=== PATIENT | male | born 1945 | race Caucasian/White ===

== ENCOUNTER 2020-05-16 06:00 | Outpatient (RCR) | payer MEDICARE, SELFPAY | END 2020-05-31 23:59 | disposition home or self-care (01) | LOC: WPT 06:00 | PROVIDERS: PCP Physician Assistant Medical; Referring Provider Physician Assistant Medical; Visit Provider Physician Assistant Medical | DX: G20 Parkinson's disease (principal) | CPT/HCPCS: 97110; 97116; 97163 ==

== ENCOUNTER 2020-06-01 06:00 | Outpatient (RCR) | payer MEDICARE, SELFPAY | END 2020-07-01 23:59 | disposition home or self-care (01) | LOC: WPT 06:00 | PROVIDERS: PCP Physician Assistant Medical; Referring Provider Physician Assistant Medical; Visit Provider Physician Assistant Medical | DX: G20 Parkinson's disease (principal); Z98.1 Arthrodesis status | CPT/HCPCS: 97110; 97116 ==

== ENCOUNTER 2020-09-12 13:06 | Emergency (ER) | payer MEDICARE, SELFPAY ==
--- NOTE | 2020-09-12 13:10 | ECG_ITS ---
[facility] Test Date: 2020-09-12 Pat Name: Luis Brewster Department: Room: Gender: Male Ostomy Care Nurse: : 1945 Requested By: Bon Vela Order Number: [id number] Yas MD: Waqas Dela Cruz M.D. Measurements Intervals [place] Rate: 73 P: 27 LA: 165 QRS: 44 QRSD: 95 T: 21 QT: 369 QTc: 408 Interpretive Statements LIKELY SINUS RHYTHM CAN NOT INTERPRET FURTHER BECAUSE OF BASELINE ABNORMALITIES No previous ECG available for comparison Electronically Signed On 09-13-2020 20:05:06 SOFTWARE PACKAGER by Waqas Dela Cruz M.D. [email or web address] Corpcleveland clinic [email or web address] hospital.Lernstift/store/NU/[id number] f
--- NOTE | 2020-09-12 13:10 | XRR_ITS ---
PROCEDURE INFORMATION: Exam: XR Chest, 1 View Exam date and time: 09/12/2020 1:33 PM Age: 75 years old Clinical indication: Shortness of breath; Additional info: SOB TECHNIQUE: Imaging protocol: XR of the chest Views: 1 view. COMPARISON: No relevant prior studies available. FINDINGS: Tubes, catheters and devices: Electronic stimulator is in place in the left axillary soft tissues the lead extends into the neck Lungs: Unremarkable. No consolidation. Pleural space: Unremarkable. No pleural effusion. No pneumothorax. Heart/Mediastinum: Unremarkable. No cardiomegaly. Bones/joints: Unremarkable. XR/XR chest 1V portable [id number] IMPRESSION: 1. No acute findings. 2. Electronic stimulator left axillary soft tissues
[2020-09-12 13:20] VITALS: BP 150/76; PULSE 80; RESP 16; TEMP 37; O2SAT 93; BMI 27.1
--- NOTE | 2020-09-12 13:28 | ED_ITS ---
HPI - Weakness General: Chief complaint: COVID symptoms Stated complaint: COVID +/ GENERAL WEAKNESS Time Seen by Provider: 09/12/20 13:09 Source: patient Mode of arrival: ambulatory Limitations: no limitations History of Present Illness: HPI Narrative: 75-year-old male who was diagnosed with Covid 3 days ago. He states he has a history of Parkinson's has had increased weakness patient's home health called as he has been unable to transfer from his bed to his wheelchair. Patient states that he just has absolutely 0 strength. He denies any fever. He is in no respiratory distress and does not require any oxygen. Denies any worsening or improving factors. Associated symptoms: Denies chest pain, chills, dysuria, easy bruising, fever(s), nausea or vomiting Review of Systems Const: Denies: fever(s), chills, body aches or change in appetite Eyes: Denies: blurry vision or eye discomfort ENMT: Denies: throat pain or dental pain Card: Denies: chest pain Resp: Denies: dyspnea GI: Denies: abdominal pain, nausea, vomiting or diarrhea : Denies: dysuria Musc: Denies: neck pain or back pain Skin/Breast: Denies: rash Neuro: Reports: weakness in extremities Psych: Denies: depression Bobby/Lymph: Denies: easy bruising All/Imm: Denies: urticaria PFSH ED PFSH: Social History (Updated 09/12/20 @ 13:38 by John Farr RN) Smoking and tobacco status: former smoker Alcohol intake: never Substance/Drug Use: never Physical Exam Const: COMMON NORMALS: patient oriented x3 GENERAL APPEARANCE: ill appearing HENMT: COMMON NORMALS: normocephalic and atraumatic HEAD & SCALP: normocephalic and atraumatic Eye: COMMON NORMALS: Equal, round and reactive pupils present and EOMs intact bilaterally PUPIL: Yes Equal, round and reactive pupils present Neck/C-Spine: COMMON NORMALS: full ROM and supple Chest: COMMONS NORMALS: normal inspection of the chest and normal palpation of entire chest wall Resp: COMMON NORMALS: normal respiratory effort, No retractions, No use of accessory muscles and clear to auscultation bilaterally AUSCULTATION: clear to auscultation bilaterally Cardio: COMMON NORMALS: regular rate, regular rhythm and No murmurs present (Cardio) RATE: regular rate RHYTHM: regular rhythm GI: COMMON NORMALS: Normal to inspection, nondistended, normoactive bowel sounds present, Soft to palpation, non-tender and no masses PALPATION: Yes Soft to palpation Extremity: COMMON NORMALS: normal to inspection and full ROM Neuro: COMMON NORMALS: patient oriented x3, moves all extremities and no focal motor deficits Psych: COMMON NORMALS: mental status grossly normal, Normal thought process present and cooperative THOUGHT PROCESS: Normal thought process present Skin: COMMON NORMALS: no rashes or lesions noted and no wounds GENERAL SKIN EXAM: no rashes or lesions noted Course Vital Signs: Vital signs: Vital Signs Temperature 98.6 F 09/12/20 13:20 Pulse Rate 81 09/12/20 17:00 Respiratory Rate 16 09/12/20 13:20 Blood Pressure 164/82 09/12/20 17:00 Pulse Oximetry 95 09/12/20 17:00 MDM - Weakness MDM Narrative: Medical decision making narrative: Patient presents here with generalized weakness likely from his Covid. Patient is well-appearing here not requiring any extra oxygen and blood work is all normal. He is able to transfer to his wheelchair here and is at his baseline. Patient is stable for discharge and is to follow-up his PCP in 3 to 5 days return if worsening. Lab Data: Labs: Lab Results 09/12/20 09/12/20 09/12/20 Range/Units 12:00 12:00 12:00 WBC 2.5 L (4.0-10.0) 10^3/ uL RBC 5.37 H (4.1-5.3) 10^6/u L Hgb 15.5 (11.7-16.6) g/dL Hct 48.2 (42.0-52.0) % MCV 89.8 (80-94) fL MCH 28.9 (28.0-34.0) pg MCHC 32.2 (30.0-36.0) g/dL RDW 14.0 (12.1-15.1) % Plt Count 135 (130-400) 10^3/c mm MPV 10.8 H (7.4-10.4) fL Neut % (Auto) 45.6 % Lymph % (Auto) 36.6 % [place] % (Auto) 15.4 % Eos % (Auto) 2.0 % Baso % (Auto) 0.4 % Neut # (Auto) 1.16 L (1.8-7.7) 10^3/u L Lymph # (Auto) 0.9 (0.8-4.8) 10^3/u L [place] # (Auto) 0.4 (0.2-0.9) 10^3/u L Eos # (Auto) 0.1 (0.0-0.8) 10^3/u L Baso # (Auto) 0.0 (0.0-0.1) 10^3/u L Nucleated RBC % (a uto) 0 % Nucleated RBCs # 0.0 /100WBC Fibrinogen 435 (174-498) mg/dL Specimen Type Sample Site ABG pH (7.35-7.45) ABG pCO2 (35-45) mmHg ABG pO2 (80.0-100.0) mmH g ABG HCO3 (22-26) mmol/L ABG Base Excess (-2.0-2.0) mmol/ L Tim Test Hematocrit (42-52) % O2 Delivery Device FiO2 % Negative Turner Apprentice ID Sodium 137 (136-145) mmol/L Potassium 4.2 (3.5-5.1) mmol/L Chloride 104 (98-107) mmol/L Carbon Dioxide 24 (22-29) mmol/L Anion Gap 13.2 (5-19) BUN 18 (8-23) mg/dL Creatinine 1.0 (0.7-1.2) mg/dL GFR Calculation Not Reportable Glucose 113 (65-115) mg/dL Calculated Osmolal ity 287 (285-295) mOsm/k g Lactic Acid (0.5-2.2) mmol/L Calcium 8.8 (8.5-10.5) mg/dL Ferritin 224 (30-400) ng/mL Total Bilirubin 0.2 (0.15-1.2) mg/dL AST 32 (0-40) U/L ALT 11 (0-41) U/L Alkaline Phosphata se 73 (40-130) IU/L C-Reactive Protein 25.2 H (0.0-4.9) mg/L NT-Pro-B Natriuret Pep 119 (0-450) pg/mL Total Protein 7.1 (6.6-8.7) g/dL Albumin 3.7 (3.5-5.2) g/dL Globulin 3.4 (1.3-4.6) g/dL Urine Color (Yellow) Urine Appearance (CLEAR) Urine pH (5-7) Ur Specific Gravit y (1.005-1.030) Urine Protein (Negative) Urine Glucose (UA) (Normal) Urine Ketones (Negative) Urine Blood (Negative) Urine Nitrate (Negative) Urine Bilirubin (Negative) Urine Urobilinogen (Negative) mg/dL Ur Leukocyte Tamar ase (Negative) Urine RBC (0-2) /hpf Urine WBC (0-5) /hpf Ur Squamous Epith Cells (0-5) /hpf Amorphous Sediment Urine Bacteria (NONE) /hpf Urine Mucus /hpf 09/12/20 09/12/20 09/12/20 Range/Units 13:50 14:05 15:30 WBC (4.0-10.0) 10^3/ uL RBC (4.1-5.3) 10^6/u L Hgb (11.7-16.6) g/dL Hct (42.0-52.0) % MCV (80-94) fL MCH (28.0-34.0) pg MCHC (30.0-36.0) g/dL RDW (12.1-15.1) % Plt Count (130-400) 10^3/c mm MPV (7.4-10.4) fL Neut % (Auto) % Lymph % (Auto) % [place] % (Auto) % Eos % (Auto) % Baso % (Auto) % Neut # (Auto) (1.8-7.7) 10^3/u L Lymph # (Auto) (0.8-4.8) 10^3/u L [place] # (Auto) (0.2-0.9) 10^3/u L Eos # (Auto) (0.0-0.8) 10^3/u L Baso # (Auto) (0.0-0.1) 10^3/u L Nucleated RBC % (a uto) % Nucleated RBCs # /100WBC Fibrinogen (174-498) mg/dL Specimen Type Arterial Sample Site Radial, right ABG pH 7.44 (7.35-7.45) ABG pCO2 35.1 (35-45) mmHg ABG pO2 73.5 L (80.0-100.0) mmH g ABG HCO3 23.9 (22-26) mmol/L ABG Base Excess 0.2 (-2.0-2.0) mmol/ L Tim Test Pos Hematocrit 46.7 (42-52) % O2 Delivery Device Room air FiO2 51.0 % Negative Turner Apprentice ID Broma Sodium (136-145) mmol/L Potassium (3.5-5.1) mmol/L Chloride (98-107) mmol/L Carbon Dioxide (22-29) mmol/L Anion Gap (5-19) BUN (8-23) mg/dL Creatinine (0.7-1.2) mg/dL GFR Calculation Glucose (65-115) mg/dL Calculated Osmolal ity (285-295) mOsm/k g Lactic Acid 0.8 (0.5-2.2) mmol/L Calcium (8.5-10.5) mg/dL Ferritin (30-400) ng/mL Total Bilirubin (0.15-1.2) mg/dL AST (0-40) U/L ALT (0-41) U/L Alkaline Phosphata se (40-130) IU/L C-Reactive Protein (0.0-4.9) mg/L NT-Pro-B Natriuret Pep (0-450) pg/mL Total Protein (6.6-8.7) g/dL Albumin (3.5-5.2) g/dL Globulin (1.3-4.6) g/dL Urine Color Yellow (Yellow) Urine Appearance Clear (CLEAR) Urine pH 5.0 (5-7) Ur Specific Gravit y 1.025 (1.005-1.030) Urine Protein Trace (Negative) Urine Glucose (UA) Norm (Normal) Urine Ketones Negative (Negative) Urine Blood Neg (Negative) Urine Nitrate Negative (Negative) Urine Bilirubin Neg (Negative) Urine Urobilinogen Norm (Negative) mg/dL Ur Leukocyte Tamar ase Negative (Negative) Urine RBC 0-4 H (0-2) /hpf Urine WBC None (0-5) /hpf Ur Squamous Epith Cells 0-4 H (0-5) /hpf Amorphous Sediment Not Reportable Urine Bacteria Trace (NONE) /hpf Urine Mucus Trace /hpf Imaging Data^: CXR: Radiologist's impression: [address] [place] [address] XRay Report Signed Patient: Luis Brewster Unit #: [id number] : 1945 Age/Sex: 75 / M ADM Date: 09/12/20 Loc: ER Room/Bed: Attending Dr: Ordering Provider/Ordering MD: Bon Vela MD Date of Service: 09/12/20 Procedure(s): XR chest 1V portable [id number] Accession Number(s): [id number] Report Number: [id number] PROCEDURE INFORMATION: Exam: XR Chest, 1 View Exam date and time: 09/12/2020 1:33 PM Age: 75 years old Clinical indication: Shortness of breath; Additional info: SOB TECHNIQUE: Imaging protocol: XR of the chest Views: 1 view. COMPARISON: No relevant prior studies available. FINDINGS: Tubes, catheters and devices: Electronic stimulator is in place in the left axillary soft tissues the lead extends into the neck Lungs: Unremarkable. No consolidation. Pleural space: Unremarkable. No pleural effusion. No pneumothorax. Heart/Mediastinum: Unremarkable. No cardiomegaly. Bones/joints: Unremarkable. XR/XR chest 1V portable [id number] IMPRESSION: 1. No acute findings. 2. Electronic stimulator left axillary soft tissues EKG Data^: EKG 1: Attestation: I personally reviewed and interpreted this EKG as follows: EKG interpretation date: 09/12/20 EKG interpretation time: 15:21 Interpretation: nsr hr 73 no stemi ekg omid limited do to artifact Discharge Plan Discharge Patient Disposition: Home Clinical Impression: Weakness, COVID-19 Condition: Stable Prescriptions: No Action carisoprodol 350 mg tablet 350 mg PO TID PRN (Reason: Muscle Spasm) RF: 0 albuterol sulfate 2.5 mg /3 mL (0.083 %) solution for nebulization 2.5 mg inhalation Q4H PRN (Reason: Shortness Of Breath) RF: 0 azithromycin 250 mg tablet See Rx Instructions .ROUTE .COMPLEX RF: 0 clonazepam 0.5 mg tablet 0.5 mg PO BID RF: 0 amlodipine 2.5 mg tablet 2.5 mg PO DAILY RF: 0 tramadol 50 mg tablet 50 - 100 mg PO Q6H PRN (Reason: Pain) RF: 0 Tylenol Arthritis 650 mg Tablet Extended Release 1,300 mg PO PRN RF: 0 tamsulosin 0.4 mg capsule 0.8 mg PO DAILY RF: 0 ropinirole 0.25 mg tablet 0.25 mg PO TID RF: 0 zolpidem 10 mg tablet 5 mg PO BEDTIME PRN (Reason: Sleep) RF: 0 carbidopa-levodopa 25-100 mg tablet 1 tab PO BID RF: 0 melatonin 5 mg Tablet 5 mg PO BEDTIME RF: 0 Discharge Orders: Discharge Order (Routine); Ordered 09/12/20 Ordered By: Bon Vela Referrals: Dominik Rebolledo [Primary Care Provider] - Discharge Diet: Advance as tolerated Discharge Activity: Resume usual activity Patient Instructions: Weakness (ED) Coding Level of Care Code ED Manager Of Investigations for Kathie Fwd Exam Comprehensive
[2020-09-12 14:00] VITALS: BP 152/86; PULSE 84; O2SAT 95
[2020-09-12 14:01] LABS: ABG PCO2 35.1 mmHg (35-45); ABG PH Result 7.44 (7.35-7.45); Arterial Blood Gas Hematocrit 46.7 % (42-52); Base Excess ABG 0.2 mmol/L (-2.0-2.0); Blood Gas Allen Test Pos; Blood Gas Sample Site Radial, right; Blood Gas Sample Type Arterial; HCO3 ABG 23.9 mmol/L (22-26); Oxygen Device ROOM AIR; PO2 ABG 73.5 mmHg (80.0-100.0)
[2020-09-12 14:02] LABS: Blood Gas Operator Identificat BROMA
[2020-09-12 14:05] VITALS: O2SAT 94
[2020-09-12 14:05] LABS: Basophils % 0.4 %; Eosinophils # 0.1 10^3/uL (0.0-0.8); Hematocrit 48.2 % (42.0-52.0); Hemoglobin 15.5 g/dL (11.7-16.6); Lymphocytes # 0.9 10^3/uL (0.8-4.8); Lymphocytes % 36.6 %; Mean Corpuscular HGB Conc 32.2 g/dL (30.0-36.0); Mean Corpuscular Hemoglobin 28.9 pg (28.0-34.0); Mean Corpuscular Volume 89.8 fL (80-94); Mean Platelet Volume 10.8 fL (7.4-10.4); Monocytes # 0.4 10^3/uL (0.2-0.9); Monocytes % 15.4 %; Neutrophils # 1.16 10^3/uL (1.8-7.7); Neutrophils % 45.6 %; Nucleated Red Blood Cells % 0 %; Platelet Count 135 10^3/cmm (130-400); Red Blood Count 5.37 10^6/uL (4.1-5.3); White Blood Count 2.5 10^3/uL (4.0-10.0)
[2020-09-12 14:15] LABS: Fibrinogen 435 mg/dL (174-498)
[2020-09-12 14:31] LABS: Alanine Aminotransferase 11 U/L (0-41); Albumin Level 3.7 g/dL (3.5-5.2); Alkaline Phosphatase 73 IU/L (40-130); Anion Gap 13.2 (5-19); Aspartate Amino Transferase 32 U/L (0-40); Blood Urea Nitrogen 18 mg/dL (8-23); C Reactive Protein 25.2 mg/L (0.0-4.9); Calcium 8.8 mg/dL (8.5-10.5); Carbon Dioxide 24 mmol/L (22-29); Chloride 104 mmol/L (98-107); Ferritin 224 ng/mL (30-400); Globulin 3.4 g/dL (1.3-4.6); Glucose 113 mg/dL (65-115); NT Pro B Type Natriuretic Pept 119 pg/mL (0-450); Osmolality Calculated 287 mOsm/kg (285-295); Potassium 4.2 mmol/L (3.5-5.1); Sodium 137 mmol/L (136-145); Total Bilirubin 0.2 mg/dL (0.15-1.2); Total Protein 7.1 g/dL (6.6-8.7)
[2020-09-12 14:39] LABS: Lactic Sepsis W/Reflex 0.8 mmol/L (0.5-2.2)
[2020-09-12 15:00] VITALS: BP 137/70; PULSE 66; O2SAT 93
[2020-09-12 16:00] VITALS: BP 136/69; PULSE 70; O2SAT 92
[2020-09-12 16:11] LABS: Add Urine Microscopic? YES; Bilirubin Urine Neg (Negative); Blood Urine Neg (Negative); Glucose Urine UA Norm (Normal); Ketones Urine Negative (Negative); Leukocyte Esterase Urine Negative (Negative); Nitrate Urine Negative (Negative); Protein Urine Trace (Negative); Specific Gravity, Urine 1.025 (1.005-1.030); Urine Appearance Clear (CLEAR); Urine Color Yellow (Yellow); Urobilinogen Urine Norm (Negative)
[2020-09-12 16:12] LABS: RBC Urine 0-4 /hpf (0-2); Squamous Epithelial Cell Urine 0-4 /hpf (0-5)
[2020-09-12 16:13] LABS: Add Urine Culture? No; Bacteria Urine TRACE /hpf; Mucus Urine TRACE /hpf
[2020-09-12 17:00] VITALS: BP 164/82; PULSE 81; O2SAT 95
--- NOTE | 2020-09-13 09:28 | PC.SOCIAL ---
Was called by [place] information technology program manager yesterday evening around 1715 who knows family. Family concerned about patient returing home. This nurse called Dr Ash ED Director and asked that he review chart. He agrees with Dr Vela that patient does not meet criteria for admission. Call placed to and discussed other options. They are unable to pay out of pocket for patient to go to SNF. We discussed Home Health. She is agreeable. She is not interested in looking up performance data and indicates she is okay with [facility] or whichever one can accept. This nurse called John at [facility] and they are not in network with [employer]. Called [facility] and they are not taking [employer] patients at this time. Called [facility] and left message. Return call received and they will check to see if have staffing in this area ([place]) and let me know. In the meantime left message for [place] and [facility] as well. Called [facility]led[facility] office and has not been seen since May. Verified with that they have a smartphone. Called PCP Office back and [facility] is out today but can do a virtual face to face visit on Wednesday at 4pm. Asked that after visit an order and other needed documentation be sent to agency. Once HH agency known will have the agency follow up on Wednesday to get the needed information. Will call back and update on appt and agency once all information known.
--- NOTE | 2020-09-13 10:46 | PC.SOCIAL ---
[facility] accepts and will follow up Wednesday the to get orders for nursing and PT from [facility] along with face to face. Updated of appt for virtual visit at 4pm on 09/16/2020 and that [facility] should be reaching out on Wednesday the . She verbalized understanding. Will try to call insurance plan later today to see if there are any additional services that can be provided for patient such as in home etc. was appreciative of the help. Sent records to [facility] with confirmation that they were transmitted successfully. Sent choice sheet to [facility] in Medical records to have scanned in chart.
--- NOTE | 2020-09-17 11:10 | PC.SOCIAL ---
Called [employer] this am and per CM team the insurance does not cover any in home type services such as sitter, bathing, cleaning or meal prep. Only services covered are those under HH and therapy. Unable to reach to update her but left message.
== END 2020-09-12 18:25 | disposition home or self-care (01) ==
PROVIDERS: Emergency Provider Emergency Medicine; PCP Physician Assistant Medical
DX: U07.1 COVID-19 (principal); R53.1 Weakness; Z87.891 Personal history of nicotine dependence; G20 Parkinson's disease
CPT/HCPCS: 12345; 36600; 71045; 80053; 81001; 82728; 82803; 83605; 83880; 85025; 85384; 86140; 93005; 96360; 99283; 99284

== ENCOUNTER 2021-06-15 06:00 | Outpatient (RCR) | payer MEDICARE, SELFPAY | END 2021-07-01 23:59 | disposition home or self-care (01) | LOC: SST 06:00 | PROVIDERS: PCP Physician Assistant Medical; Referring Provider Physician Assistant Medical; Visit Provider Physician Assistant Medical | DX: G20 Parkinson's disease (principal) | CPT/HCPCS: 92607; 92608 ==

== ENCOUNTER → 2022-07-21 10:12 | Outpatient (BNVA) | payer MEDICARE, SELFPAY | PROVIDERS: PCP Physician Assistant Medical; Visit Provider Anesthesiology Pain Medicine | DX: G89.29 Other chronic pain (principal); M54.50 Low back pain, unspecified; M79.604 Pain in right leg; M79.605 Pain in left leg | CPT/HCPCS: 99204 ==

== ENCOUNTER 2022-09-30 10:02 | Outpatient (CLI) | payer MEDICARE, SELFPAY ==
--- NOTE | 2022-09-30 10:30 | CT_ITS ---
WS: [id number] CT LUMBAR SPINE TECHNIQUE: Noncontrast CT of the lumbar spine with coronal and sagittal reformatted images. CLINICAL INFORMATION: M54.16 - Radiculopathy, lumbar region COMPARISON: None. DLP: 1433.[address] scans at [facility] use at least one of these dose optimization techniques: automated e xposure control; mA and/or kV adjustment per patient size (includes targeted exams where dose is matc hed to clinical indication); or iterative reconstruction. FINDINGS: Mild lumbar curve. No acute compression. Prior postoperative changes pedicle screw fixation L3-L5 wit h interbody fusion grafts. L5 is partially sacralized on the RIGHT. Disc space narrowing worse at T12 -L1, L1-L2 and L2-L3. Pedicle screws appear intact. No evidence of screw loosening. Interbody fusion grafts with evidence of bony bridging beyond the confines of the grafts L3-L4. Partial fusion at L4-L 5 with minimal evidence of bony bridging beyond the confines of the graft. T12-L1: Disc osteophytic ridging. Narrowing of the RIGHT subarticular recess. Moderate RIGHT foramina l narrowing. Mild facet arthropathy. Mild central canal stenosis. L1-L2: Disc osteophytic ridging. Mild central canal stenosis. Mild facet arthropathy. Mild to moderat e RIGHT foraminal narrowing. L2-L3: Vacuum disc phenomenon. Slight narrowing of subarticular recess bilaterally. Moderate facet ar thropathy. Moderate RIGHT foraminal narrowing with impingement on the exiting RIGHT L2 nerve root. RI GHT eccentric disc bulging. Mild LEFT foraminal narrowing. Mild central canal stenosis at this level. L3-L4: Prior pedicle screw fixation. Osteophytic ridging with mild narrowing of the RIGHT subarticula r recess. Mild to moderate RIGHT and mild LEFT foraminal narrowing. L4-L5: Postoperative changes. Disc osteophytic ridging. Mild central canal stenosis with slight impin gement on the LEFT greater than RIGHT subarticular recess. Prior LEFT laminectomy. Moderate LEFT and mild RIGHT foraminal narrowing. L5-S1: L5 is partially sacralized on the RIGHT. Spinal canal and foramen are patent. Sigmoid diverticulosis. CT/CT lumbar spine wo con* [id number] IMPRESSION: 1. Prior postoperative changes pedicle screw fixation L3-L5 with interbody fus ion grafts. Pedicle screws appear intact. No evidence of screw loosening. 2. Dorsal interconnecting rods appear intact. 3. Solid appearing interbody fusion grafts L3-L4. Incomplete interbody fusion L4-L5. 4. Mild central canal stenosis at T12-L1, L1-L2, and L2-L3. 5. Moderate bony foraminal narrowing worse at RIGHT T12-L1, RIGHT L1-L2, RIGHT L2-L3, and LEFT L4-L5. 6. Mild bilateral bony foraminal narrowing L3-L4.
== END 2022-09-30 10:03 | disposition home or self-care (01) ==
LOC: RAD 10:04
PROVIDERS: PCP Physician Assistant Medical; Visit Provider Anesthesiology Pain Medicine
DX: M54.16 Radiculopathy, lumbar region (principal); M48.05 Spinal stenosis, thoracolumbar region; M48.061 Spinal stenosis, lumbar region without neurogenic claudication
CPT/HCPCS: 72131

== ENCOUNTER → 2022-10-07 10:12 | Outpatient (BNVA) | payer MEDICARE, SELFPAY | PROVIDERS: PCP Physician Assistant Medical; Visit Provider Anesthesiology Pain Medicine | DX: G89.29 Other chronic pain (principal); M54.50 Low back pain, unspecified; M79.604 Pain in right leg; M79.605 Pain in left leg | CPT/HCPCS: 99214 ==

== ENCOUNTER → 2023-07-29 09:49 | Outpatient (BNVA) | payer MEDICARE, SELFPAY | PROVIDERS: PCP Physician Assistant Medical; Visit Provider Nurse Practitioner Family | DX: L82.1 Other seborrheic keratosis (principal); L57.8 Other skin changes due to chronic exposure to nonionizing radiation; L57.0 Actinic keratosis; L21.8 Other seborrheic dermatitis; Z08 Encounter for follow-up examination after completed treatment for malignant neoplasm; Z85.828 Personal history of other malignant neoplasm of skin | CPT/HCPCS: 17004; 99214 ==

== ENCOUNTER → 2024-01-13 10:49 | Outpatient (BNVA) | payer MEDICARE, SELFPAY | PROVIDERS: PCP Physician Assistant Medical; Visit Provider Nurse Practitioner Family | DX: D48.5 Neoplasm of uncertain behavior of skin (principal); L82.0 Inflamed seborrheic keratosis; L57.8 Other skin changes due to chronic exposure to nonionizing radiation; L81.4 Other melanin hyperpigmentation; L57.0 Actinic keratosis; I87.2 Venous insufficiency (chronic) (peripheral); Z85.828 Personal history of other malignant neoplasm of skin | CPT/HCPCS: 11102; 17000; 17110; 99214 ==

== ENCOUNTER → 2024-02-09 09:53 | Outpatient (BNVA) | payer MEDICARE, SELFPAY | PROVIDERS: PCP Physician Assistant Medical; Visit Provider Dermatology | DX: C44.612 Basal cell carcinoma of skin of right upper limb, including shoulder (principal); D48.5 Neoplasm of uncertain behavior of skin | CPT/HCPCS: 11102; 11602; 13121 ==